=== PATIENT | male | born 1980 | race Caucasian/White ===

== ENCOUNTER 2016-05-10 08:37 | Emergency (ER) | payer BC ==
[2016-05-10 08:51] VITALS: BP 141/79
--- NOTE | 2016-05-10 08:56 | UC ---
Headache HPI - HPI Summary HPI Summary: left occipital pain for 5 days, was not a sever, sudden onset and not the worse headache of his life--is getting some relief with Ibuprofen - History Of Current Complaint Chief Complaint: UCHeadache Stated Complaint: HEADACHE Time Seen by Provider: 05/10/16 08:53 Hx Obtained From: Patient Onset/Duration: Sudden Onset, Lasting Days - 5, Still Present Onset Of Symptoms: Sudden, Still Present Initially Headache Was: Moderate Currently Pain Is: Moderate Pain Intensity: 5 Pain Scale Used: 0-10 Numeric Timing: Constant Character: Throbbing, Pressure Location of Headache: Occipital - left side Aggravating Factor: Nothing Allevating Factors: Medication Associated Signs And Symptoms: Positive: Negative - Risk Factors SAH Risk Factors: Alcohol Abuse Meningitis Risk Factors: Negative SDH Risk Factors: Negative Temporal Arteritis Risk Factors: Negative - Allergies/Home Medications Allergies/Adverse Reactions: Allergies Allergy/AdvReac Type Severity Reaction Status Date / Time No Known Allergies Allergy Verified 05/10/16 08:45 Home Medications: Home Medications NK [No Home Medications Reported] 05/10/16 [History Confirmed 05/10/16] PMH/Surg Hx/FS Hx/Imm Hx Previously Healthy: Yes Endocrine History Of: Denies: Diabetes, Thyroid Disease Cardiovascular History Of: Denies: Cardiac Disorders, Hypertension Respiratory History Of: Denies: COPD, Asthma GI/ History Of: Denies: Ulcer - Surgical History Surgical History: None - Family History Known Family History: Positive: None Family History: denies medical issues in family lineage - Social History Occupation: Employed Full-time Lives: With Family Alcohol Use: Daily Alcohol Amount: 2-3 beer daily Substance Use Type: None Smoking Status (MU): Never Smoked Tobacco Review of Systems Constitutional: Negative Skin: Negative Eyes: Negative ENT: Negative Respiratory: Negative Cardiovascular: Negative Gastrointestinal: Negative Genitourinary: Negative Motor: Negative Neurovascular: Negative Musculoskeletal: Negative Neurological: Headache Psychological: Negative All Other Systems Reviewed And Are Negative: Yes Physical Exam Triage Information Reviewed: Yes Appearance: Well-Appearing, No Pain Distress, Well-Nourished Vital Signs: Initial Vital Signs Temp 99 F 05/10/16 08:46 Pulse 81 05/10/16 08:46 Resp 18 05/10/16 08:46 BP 141/79 05/10/16 08:46 Pulse Ox 99 05/10/16 08:46 Vital Signs Reviewed: Yes Eye Exam: Normal Eyes: Positive: Conjunctiva Clear ENT Exam: Normal ENT: Positive: Normal ENT inspection, Hearing grossly normal, Pharynx normal, TMs normal. Negative: Nasal congestion, Nasal drainage, Tonsillar swelling, Tonsillar exudate, Trismus, Muffled/hoarse voice Dental Exam: Normal Neck exam: Normal Neck: Positive: Supple, Nontender, No Lymphadenopathy Respiratory Exam: Normal Respiratory: Positive: Chest non-tender, Lungs clear, Normal breath sounds, No respiratory distress, No accessory muscle use Cardiovascular Exam: Normal Cardiovascular: Positive: RRR, No Murmur, Pulses Normal, Brisk Capillary Refill Musculoskeletal Exam: Normal Musculoskeletal: Positive: Strength Intact, ROM Intact, No Edema Neurological Exam: Normal Neurological: Positive: Alert, Muscle Tone Normal, Fatigued Psychological Exam: Normal Skin Exam: Normal Diagnostics - Laboratory Diagnostic Studies Completed/Ordered: (-) for acute intercaranial pathology per Dr. Salse Headache Course/Dx - Course Course Of Treatment: Continue Ibuprofen, watch for rash, return for changes, follow with PCP Prn - Differential Dx/Diagnosis Differential Diagnosis/HQI/PQRI: Migraine, Tension Headache, Viral Syndrome Provider Diagnoses: headache Discharge - Discharge Plan Condition: Stable Disposition: HOME Patient Education Materials: Ibuprofen (By mouth), Tension Headache (ED), General Headache (ED) Referrals: Jesenia Collins [Primary Care Provider] - 3 Days
--- NOTE | 2016-05-10 10:21 | RAD ---
HISTORY: Left occipital pain, lightheadedness, headache COMPARISONS: None TECHNIQUE: Multiple contiguous axial CT scans were obtained of the head without intravenous contrast. FINDINGS: HEMORRHAGE/INFARCT: There is no hemorrhage or acute infarct. MASSES/SHIFT: There is no mass or shift. EXTRA-AXIAL SPACES: There are no extra-axial fluid collections. SULCI AND VENTRICLES: The sulci and ventricles are normal in size and position for the patient's stated age. CEREBRUM: There are no focal parenchymal abnormalities. BRAINSTEM: There are no focal parenchymal abnormalities. CEREBELLUM: There are no focal parenchymal abnormalities. VESSELS: The vessels are grossly normal. PARANASAL SINUSES: The paranasal sinuses are clear. ORBITS: The orbits are unremarkable. BONES AND SOFT TISSUE: No bone or soft tissue abnormalities are noted. OTHER: None IMPRESSION: NO ACUTE INTRACRANIAL PATHOLOGY.
== END 2016-05-10 10:37 | disposition home or self-care (01) ==
LOC: UCEAST 08:37
DX: R51 Headache (principal)
CPT/HCPCS: 70450; 99211; G0463

== ENCOUNTER 2017-07-06 05:47 | Day surgery (SDC) | payer BC ==
[~2017-07-06 05:47] MED LIST: Buffered Lidocaine 0.9% SYRIN* 5 ML/SYR SYRINGE INTRADERM ONE; Sodium Citrate/Citric Acid* 15 ML UDC PO ONE
[2017-07-06] MEDS ORDERED: Buffered Lidocaine 0.9% SYRIN* 5 ML/SYR SYRINGE ONE (05:55)
[2017-07-06] MEDS ORDERED: Sodium Citrate/Citric Acid* 15 ML UDC ONE (05:55)
[2017-07-06] MEDS ORDERED: ceFAZolin 2 GM PREMIX (*) 2 GM/50 ML BAG IVPB ONE (05:55)
[2017-07-06] MEDS ORDERED: Naloxone* 0.4 MG/ML 1 ML VIAL IV PRN (07:11)
[2017-07-06] MEDS ORDERED: Bupivacaine 0.5% SDV PF* 10-30ML VIAL ONE (07:15)
[2017-07-06] MEDS ORDERED: Lidocain 1% EPI 1:100,000 * 30 ML MDV ONE (07:15)
[2017-07-06] MEDS ORDERED: fentaNYL* 50 MCG/ML 2 ML VIAL (100 MCG VIAL) ONE (07:33)
[2017-07-06] MEDS ORDERED: Lidocaine 2% PF * 5 ML VIAL ONE (07:38)
[2017-07-06] MEDS ORDERED: Propofol* 10 MG/ML 20 ML BTL IV PUSH ONE (07:38)
[2017-07-06] MEDS ORDERED: Midazolam* 1 MG/ML 5 ML VIAL (5 MG) ONE (07:38)
[2017-07-06] MEDS ORDERED: Midazolam* 1 MG/ML 2 ML VIAL (2 MG) ONE (07:39)
[2017-07-06] MEDS ORDERED: Bacitracin OINTMENT* 0.5% 0.5 oz TUBE ONE (08:09)
--- NOTE | 2017-07-06 08:55 | BRIEFOPN ---
Brief Operative Note - Surgery Procedures: Pre-OP Diagnoses: umbilical hernia Post-op Diagnosis: same Procedure: open umbilical hernia repair with mesh Surgeon: Eligio Asst: Izabela Anethesia: Marybel Berg EBL: minimal IVF: minimal Specimen: none Drains: none
[2017-07-06 09:25] VITALS: BP 142/86
--- NOTE | 2017-07-07 06:50 | OP ---
CC: Jesenia Collins NP; [facility]. * DATE OF PROCEDURE: 07/06/17 - [facility] DATE OF : 76 SURGEON: Dr. Del Valle. [employer]ATH[employer] CUTTER: Ms. Gurrola ANESTHESIOLOGIST: Dr. Nelson. ANESTHESIA: Local MAC. PRE-OP DIAGNOSIS: Umbilical hernia. POST-OP DIAGNOSIS: Umbilical hernia. OPERATIVE PROCEDURE: Umbilical hernia repair with mesh. ESTIMATED BLOOD LOSS: Minimal. IV FLUIDS: Crystalloid fluids given. SPECIMEN: None. DRAINS: None. COUNT: Lap, pad, instrument count correct at the end of the procedure. DESCRIPTION OF PROCEDURE: The patient was identified in the preoperative area. Case discussed with him again. He was briefly examined and marked. He was seen by the anesthesiologist brought back to the operating room, placed on the operating table in supine position. General sedation was given. The patient's abdomen was prepped and draped in a standard surgical fashion. A time-out was performed. An infraumbilical incision was made. This was deepened down to the anterior fascia inferiorly and laterally. A window was made around the umbilical skin and a Reynaldo drain was utilized to elevate this superiorly. Sharp dissection was utilized to free the umbilical skin from the hernia sac. Mid portion of the umbilicus was very thin and we did cut into the sac to free the skin off of the hernia. Once this was performed, we can identify the hernia. It was approximately 1.5 cm. We did debride portion of the hernia sac and passed this off and was not spent as specimen, however. An extraperitoneal plane was made under the anterior fascia to encompass a 4.3 cm mesh. Once this was performed we placed the mesh in the site, it opened up appropriately and was sutured superiorly and inferiorly to the anterior fascia with 0-Vicryl suture. Corners of the fascia were also sutured at left and right side and then mesh was hidden with small [id number] 0-Vicryl suture. We had irrigated prior to this and after this , so hemostasis was achieved. The umbilical skin, which was enlarged and thinned out, was tacked down to the abdominal wall with a 2-0 Vicryl suture and the defect was reapproximated with 3-0 Vicryl followed by 4-0 Monocryl subcuticular sutures. Steri-Strips and sterile dressing were applied. The patient tolerated the procedure well, was transferred to the PACU in stable condition. [id number]/[facility] #: [id number] YANI
== END 2017-07-06 09:10 | disposition home or self-care (01) ==
LOC: OR 05:47
PROVIDERS: ATTEND Surgery
DX: K42.9 Umbilical hernia without obstruction or gangrene (principal)
CPT/HCPCS: A9270-GY; C1781; J0690; J2250; J2704; J3010